=== PATIENT | female | born 1960 | race African-American/Black ===

== ENCOUNTER 2016-04-13 09:11 | Emergency (ER) | payer OTHER ==
[~2016-04-13] VITALS: Ht 157.5 cm; Wt 71.7 kg
--- NOTE | ~2016-04-13 | EKG ---
[place] [address] [address] [facility] [employer] [place] [address] ELECTROCARDIOGRAM REPORT Name: PANCHO PETTY Room #: [facility]#: [id number] Admission: 04/13/16 Attend Phys: Discharge: Date of : 62 Report #: [id number] THIS REPORT FOR: //name// [facility] ED Test Date: 2016-04-13 Test Time: 09:20:07 Pat Name: PANCHO PETTY Department: Room: Gender: F Process Specialist: marcella : 1960 Requested By: Vivi Calles Order Number: [id number] MD: Josesito Mantilla Measurements Intervals [place] Rate: 87 P: -4 GA: 130 QRS: 17 QRSD: 79 T: 23 QT: 384 QTc: 462 Interpretive Statements Sinus rhythm Baseline wander in lead(s) V2,V3,V4,V5,V6 No previous ECG available for comparison Electronically Signed On 04-13-2016 12:48:[address] ADMINISTRATOR by Josesito Mantilla [email or web address] <ELECTRONICALLY SIGNED> By: Josesito Mantilla MD 04/13/16 1248 919 9 Josesito Mantilla MD /ARON
[~2016-04-13 09:11] MED LIST: CLARITIN-D 12 H1 TA1 PO; MOBIC15 MG PO; NORCO 5-325 TA1 EACH PO; OMEPRAZOLE 20 M20 M1 PO
[2016-04-13] MEDS ORDERED: IBUPROFEN 400400 M2 PO (09:31)
[2016-04-13 14:43] VITALS: BP 144/81
[2016-04-13] MEDS ORDERED: VALIUM5 MG PO (14:52)
[2016-04-13] MEDS ORDERED: PREDNISONE 20 M20 MG PO (14:52)
== END 2016-04-13 15:03 | disposition home or self-care (01) ==
LOC: ER 09:11
DX: M50.31 Other cervical disc degeneration, high cervical region (principal); M50.321 Other cervical disc degeneration at C4-C5 level; Z90.710 Acquired absence of both cervix and uterus; Z90.49 Acquired absence of other specified parts of digestive tract; F10.99 Alcohol use, unspecified with unspecified alcohol-induced disorder

== ENCOUNTER 2016-04-15 12:07 | Emergency (ER) | payer OTHER ==
[~2016-04-15] VITALS: Ht 165.1 cm; Wt 68.0 kg
[~2016-04-15 12:07] MED LIST changes: +IBUPROFEN 400400 M2 PO; +PREDNISONE 20 M20 MG PO; +VALIUM5 MG PO
[2016-04-15] MEDS ORDERED: HYDROCODONE-AP1 EAC6 PO (14:41)
[2016-04-15 14:54] VITALS: BP 174/102
== END 2016-04-15 14:55 | disposition home or self-care (01) ==
LOC: ER 12:07
DX: M54.12 Radiculopathy, cervical region (principal); M79.621 Pain in right upper arm; G91.9 Hydrocephalus, unspecified; Z90.710 Acquired absence of both cervix and uterus; Z90.89 Acquired absence of other organs

== ENCOUNTER 2016-11-23 11:23 | Emergency (ER) | payer OTHER ==
[~2016-11-23] VITALS: Ht 157.5 cm; Wt 65.8 kg
--- NOTE | ~2016-11-23 | EKG ---
[address] [place] [address] ELECTROCARDIOGRAM REPORT Name: PANCHO PETTY [id number] Admission: 11/23/16 Attend Phys: Discharge: 11/23/16 Date of : 62 Report #: [id number] THIS REPORT FOR: //name// [facility] ED Test Date: 2016-11-23 Test Time: 12:24:11 Pat Name: PANCHO PETTY Department: Room: Gender: F Oxygraph Operator: [email or web address] : 1960 Requested By: Tessy Quiles Order Number: [id number] MD: Soy Quevedo Measurements Intervals [place] Rate: 61 P: -8 VA: 147 QRS: 26 QRSD: 77 T: 32 QT: 426 QTc: 429 Interpretive Statements Sinus rhythm No significant abnormality Compared to ECG 04/13/2016 09:20:07 No significant change was found Electronically Signed On 11-24-2016 8:34:34 CDT by Soy Quevedo [email or web address] <ELECTRONICALLY SIGNED> By: Soy Quevedo MD, [facility] 11/24/16 0834 1224 23 Soy Quevedo MD, FACC /EPI
[~2016-11-23 11:23] MED LIST changes: +HYDROCODONE-AP1 EAC6 PO
[2016-11-23 11:40] VITALS: BP 213/112
[2016-11-23 12:49] LABS: HEMATOCRIT 42.4 % (37.0-47.0); HEMOGLOBIN 14.4 gm/dL (12.0-15.0); MCHC 33.9 g/dL (28.0-37.0); MCV 88.5 fL (80.0-100.0); RBC 4.8 mil/uL (4.20-5.00); RDW 13.7 % (10.5-14.5); WBC 5.8 thou/uL (4.0-11.0)
[2016-11-23 13:01] LABS: ANION GAP 9 mmol/L (7-16); BUN 11 mg/dL (7-18); CALCIUM 9.4 mg/dL (8.5-10.1); CHLORIDE 104 mmol/L (98-107); CO2 28 mmol/L (21-32); CREATININE 0.8 mg/dL (0.6-1.0); GLUCOSE 100 mg/dL (74-106); POTASSIUM 4.1 mmol/L (3.5-5.1); SODIUM 141 mmol/L (136-145)
[2016-11-23 13:10] LABS: ALKALINE PHOSPHATASE 73 U/L (46-116); SGOT 19 U/L (15-37); SGPT 31 U/L (30-65); TOTAL BILIRUBIN 0.3 mg/dL (<0.1-1.0); TOTAL PROTEIN 7.8 g/dL (6.4-8.2); TROPONIN-I < 0.04 ng/mL (<0.04-0.07)
[2016-11-23] MEDS ORDERED: PRINIVIL20 M1 PO (13:56)
[2016-11-24] MEDS ORDERED: NORCO 5-325 TA1 EACH PO (10:20)
[2016-11-24] MEDS ORDERED: MOBIC15 MG PO (10:20)
[2016-11-24] MEDS ORDERED: VALIUM5 MG PO (10:20)
== END 2016-11-23 14:02 | disposition home or self-care (01) ==
LOC: ER 11:23
PROVIDERS: Physician Assistant
DX: I10 Essential (primary) hypertension (principal); M54.12 Radiculopathy, cervical region; M79.601 Pain in right arm; F10.99 Alcohol use, unspecified with unspecified alcohol-induced disorder; Z98.2 Presence of cerebrospinal fluid drainage device; Z90.710 Acquired absence of both cervix and uterus; Z98.890 Other specified postprocedural states

== ENCOUNTER 2016-11-24 08:15 | Emergency (ER) | payer OTHER ==
[~2016-11-24] VITALS: Ht 152.4 cm; Wt 69.8 kg
--- NOTE | ~2016-11-24 | EKG ---
[place] [address] [address] [facility] [place] [address] ELECTROCARDIOGRAM REPORT Name: PANCHO PETTY [facility] [id number] Admission: 11/24/16 Attend Phys: Discharge: 11/24/16 Date of : 62 Report #: [id number] THIS REPORT FOR: //name// [facility] ED Test Date: 2016-11-24 Test Time: 09:55:13 Pat Name: PANCHO PETTY Department: Room: Gender: F Art Educator: [id number] : 1960 Requested By: Graciela Bradford Order Number: [id number] MD: Soy Quevedo Measurements Intervals [place] Rate: 52 P: 21 TN: 145 QRS: 24 QRSD: 79 T: 26 QT: 465 QTc: 433 Interpretive Statements Sinus bradycardia Otherwise no significant abnormality Compared to ECG 11/23/2016 12:24:11 No significant change was found Electronically Signed On 11-27-2016 13:23:17 CDT by Soy Quevedo [email or web address] <ELECTRONICALLY SIGNED> By: Soy Quevedo MD, [facility] 11/27/16 1323 954 4 Soy Quevedo MD, FACC /EPI
[~2016-11-24 08:15] MED LIST changes: +PRINIVIL20 M1 PO
[2016-11-24 08:24] VITALS: BP 188/81
[2016-11-24 09:37] LABS: ABSOLUTE NEUTROPHILS 2.6 thou/uL (1.4-8.2); BASOPHILS 0.5 % (0.0-2.0); EOSINOPHILS 0.6 % (0.0-3.0); HEMOGLOBIN 15.2 gm/dL (12.0-15.0); LYMPHOCYTES 24.2 % (24.0-44.0); MCHC 33.8 g/dL (28.0-37.0); MCV 88.7 fL (80.0-100.0); MONOCYTES 8.3 % (1.0-8.0); PLATELET COUNT 262 thou/uL (150-400); POLYS 66.4 % (36.0-66.0); RBC 5.08 mil/uL (4.20-5.00); RDW 13.8 % (10.5-14.5)
[2016-11-24 09:43] LABS: MANUAL DIFF NO
[2016-11-24 09:50] LABS: ANION GAP 6 mmol/L (7-16); BUN 10 mg/dL (7-18); CALCIUM 9.7 mg/dL (8.5-10.1); CHLORIDE 103 mmol/L (98-107); CO2 30 mmol/L (21-32); CREATININE 0.8 mg/dL (0.6-1.0); GLUCOSE 104 mg/dL (74-106); SODIUM 139 mmol/L (136-145)
[2016-11-24 09:58] LABS: TROPONIN-I < 0.04 ng/mL (<0.04-0.07)
[2016-11-24] MEDS ORDERED: MOBIC15 MG PO (10:20)
[2016-11-24] MEDS ORDERED: VALIUM5 MG PO (10:20)
[2016-11-24] MEDS ORDERED: NORCO 5-325 TA1 EACH PO (10:20)
== END 2016-11-24 11:05 | disposition home or self-care (01) ==
LOC: ER 08:15
PROVIDERS: Emergency Medicine
DX: S46.911A Strain of unspecified muscle, fascia and tendon at shoulder and upper arm level, right arm, initial encounter (principal); M54.12 Radiculopathy, cervical region; Z90.710 Acquired absence of both cervix and uterus; Z98.890 Other specified postprocedural states; F10.99 Alcohol use, unspecified with unspecified alcohol-induced disorder; X58.XXXA Exposure to other specified factors, initial encounter; Y93.89 Activity, other specified; Y92.89 Other specified places as the place of occurrence of the external cause; Y99.8 Other external cause status

== ENCOUNTER 2019-02-21 14:21 | Emergency (ER) | payer OTHER ==
[~2019-02-21] VITALS: Ht 154.9 cm; Wt 65.3 kg
[~2019-02-21 14:21] MED LIST changes: +ASPIR-LOW81 MG PO; +LISINOPRIL10 MG PO
[2019-02-21 15:09] LABS: ABSOLUTE NEUTROPHILS 2.8 thou/uL (1.4-8.2); BASOPHILS 0.6 % (0.0-2.0); EOSINOPHILS 2.6 % (0.0-3.0); HEMATOCRIT 42.3 % (37.0-47.0); HEMOGLOBIN 13.7 gm/dL (12.0-15.0); LYMPHOCYTES 35.3 % (24.0-44.0); MCH 29.1 pg (26.0-34.0); MCHC 32.5 g/dL (28.0-37.0); MCV 89.5 fL (80.0-100.0); MONOCYTES 8.7 % (1.0-8.0); PLATELET COUNT 295 thou/uL (150-400); POLYS 52.8 % (36.0-66.0); RBC 4.72 mil/uL (4.20-5.00); RDW 13.4 % (10.5-14.5); WBC 5.3 thou/uL (4.0-11.0)
[2019-02-21 15:19] LABS: CALCIUM 9.6 mg/dL (8.5-10.1); CREATININE 0.7 mg/dL (0.6-1.0); POTASSIUM 3.9 mmol/L (3.5-5.1)
[2019-02-21 15:24] LABS: ALBUMIN 3.8 g/dL (3.4-5.0); TOTAL BILIRUBIN 0.2 mg/dL (<0.1-1.0); TOTAL PROTEIN 7.8 g/dL (6.4-8.2)
[2019-02-21 16:50] VITALS: BP 139/70
[2019-02-21] MEDS ORDERED: PREDNISONE 20 M20 MG PO ×2 (16:50→16:55)
== END 2019-02-21 17:49 | disposition home or self-care (01) ==
LOC: ER 14:21
PROVIDERS: Nurse Practitioner Family
DX: R51 Headache (principal); H43.393 Other vitreous opacities, bilateral; Z79.82 Long term (current) use of aspirin; Z79.899 Other long term (current) drug therapy; Z98.51 Tubal ligation status; Z90.710 Acquired absence of both cervix and uterus; Z90.49 Acquired absence of other specified parts of digestive tract